=== PATIENT | female | born 1960 | race Caucasian/White ===

== ENCOUNTER 2023-09-09 06:55 | Day surgery (SDC) | payer MEDICARE ==
[2023-09-09] MEDS ORDERED: Depo-Medrol 40 MG/ML IM ONE (06:56)
[2023-09-09] MEDS ORDERED: BUPIVACAINE 0.5% VIAL IJ ONE (06:56)
[2023-09-09] MEDS ORDERED: DIPRIVAN 200 MG/20 ML IV ONE (09:42)
[2023-09-09] MEDS ORDERED: Lactated Ringers 1,000 ML IV ONE (10:42)
--- NOTE | 2023-09-09 10:59 | XRAY ---
Indication: Bilateral SI joint injection. Intraoperative fluoroscopy provided for 15 seconds. 4 digital spot images submitted for interpretation demonstrates posterior needle tip projecting over the left and right SI joint. Correlate with intraoperative findings/report.
--- NOTE | 2023-09-09 12:32 | XRAY ---
15 seconds of fluoroscopy was used in surgery for a bilateral sacroiliac joint injection.
== END 2023-09-09 09:58 | disposition home or self-care (01) ==
LOC: SDC-PAIN 06:55
PROVIDERS: ATTEND Psychiatry & Neurology Pain Medicine
DX: M46.1 Sacroiliitis, not elsewhere classified (principal); E11.9 Type 2 diabetes mellitus without complications; Z79.899 Other long term (current) drug therapy
CPT/HCPCS: 01992; 27096; 72202; 77002; 82947; G0260; J1030; J2704

== ENCOUNTER 2023-10-15 06:24 | Day surgery (SDC) | payer MEDICARE ==
[2023-10-15] MEDS ORDERED: LIDOCAINE HCL 2% 100 MG/5 ML IJ ONE (06:25)
[2023-10-15] MEDS ORDERED: D50W 50 ml Abboject IV ONE (06:25)
[2023-10-15] MEDS ORDERED: Depo-Medrol 40 MG/ML IM ONE (06:25)
[2023-10-15] MEDS ORDERED: DIPRIVAN 200 MG/20 ML IV ONE (08:38)
--- NOTE | 2023-10-15 10:53 | XRAY ---
Indication: Bilateral L4-S1 MBB. Intraoperative fluoroscopy provided for 17 seconds. Single digital spot image submitted for interpretation demonstrates posterior needle tips projecting over the expected left and right L4-S1 nerve roots. Correlate with intraoperative findings/report.
--- NOTE | 2023-10-15 11:19 | XRAY ---
17 seconds of fluoroscopy was used in surgery for a bilateral L4-S1 MBB.
[2023-10-15] MEDS ORDERED: Lactated Ringers 1,000 ML IV ONE (12:03)
== END 2023-10-15 09:08 | disposition home or self-care (01) ==
LOC: SDC-PAIN 06:24
PROVIDERS: ATTEND Psychiatry & Neurology Pain Medicine
DX: M47.816 Spondylosis without myelopathy or radiculopathy, lumbar region (principal); E11.9 Type 2 diabetes mellitus without complications
CPT/HCPCS: 64493; 64494; 72020; 77002; 82947; J1030; J2704

== ENCOUNTER 2023-12-02 06:14 | Day surgery (SDC) | payer MEDICARE ==
[2023-12-02] MEDS ORDERED: BUPIVACAINE 0.5% VIAL IJ ONE (06:15)
[2023-12-02] MEDS ORDERED: DIPRIVAN 200 MG/20 ML IV ONE ×2 (08:05→08:23)
[2023-12-02] MEDS ORDERED: Lactated Ringers 1,000 ML IV ONE (10:01)
--- NOTE | 2023-12-02 10:08 | XRAY ---
Indication: Bilateral L4-S1 MBB. Intraoperative fluoroscopy provided for 20 seconds. Single digital spot image submitted for interpretation demonstrates posterior needle tips projecting over expected left and right L4-S1 nerve roots. Correlate with intraoperative findings/report.
--- NOTE | 2023-12-02 12:09 | XRAY ---
20 seconds of fluoroscopy was used in surgery for a bilateral L4-S1 MBB.
== END 2023-12-02 08:45 | disposition home or self-care (01) ==
LOC: SDC-PAIN 06:14
PROVIDERS: ATTEND Psychiatry & Neurology Pain Medicine
DX: M47.816 Spondylosis without myelopathy or radiculopathy, lumbar region (principal); R73.03 Prediabetes
CPT/HCPCS: 64493; 64494; 72020; 77002; 82947; J2704

== ENCOUNTER 2024-01-27 06:17 | Day surgery (SDC) | payer MEDICARE ==
[2024-01-27] MEDS ORDERED: BUPIVACAINE 0.5% VIAL IJ ONE (06:18)
[2024-01-27] MEDS ORDERED: Depo-Medrol 40 MG/ML IM ONE (06:18)
[2024-01-27] MEDS ORDERED: XYLOCAINE-MPF 1% 5ML SDV IJ ONE (06:18)
[2024-01-27] MEDS ORDERED: DIPRIVAN 200 MG/20 ML IV ONE (08:14)
[2024-01-27] MEDS ORDERED: Lactated Ringers 1,000 ML IV ONE (08:33)
--- NOTE | 2024-01-27 10:12 | XRAY ---
Indication: Right L4-S1 RFA. Intraoperative fluoroscopy provided for 21 seconds. 4 digital spot image submitted for interpretation demonstrates posterior needle tips projecting over the expected right L4-S1 nerve roots. Correlate with intraoperative findings/report.
--- NOTE | 2024-01-27 12:06 | XRAY ---
21 seconds of fluoroscopy was used in surgery for a right L4-S1 RFA.
== END 2024-01-27 08:50 | disposition home or self-care (01) ==
LOC: SDC-PAIN 06:17 → EDSTATUS 19:01
PROVIDERS: ATTEND Psychiatry & Neurology Pain Medicine
DX: M47.816 Spondylosis without myelopathy or radiculopathy, lumbar region (principal); E11.9 Type 2 diabetes mellitus without complications
CPT/HCPCS: 64635; 64636; 72100; 77002; 82947; J1010; J2704